=== PATIENT | female | born 1995 | race African-American/Black ===

== ENCOUNTER 2017-06-17 17:11 | Emergency (ER) | payer OTHER ==
[~2017-06-17] VITALS: Ht 175.3 cm; Wt 67.0 kg
[2017-06-17 17:30] VITALS: TEMP 37; Ht 175.3 cm; Wt 67.0 kg
[2017-06-17] MEDS ORDERED: BCPILLS PO (19:25)
[2017-06-17 19:43] LABS: BASO % 0.3 %; BASO ABS # 0.02 K/uL (0-0.2); EOS % 0.9 %; EOS ABS # 0.06 K/uL (0-0.5); HEMOGLOBIN 13.5 g/dL (12.0-16.0); IG# 0.02 K/uL (0.00-0.02); LYMPH % 35.2 %; LYMPH ABS # 2.37 K/uL (1.2-3.4); MEAN CELL VOLUME 82.2 fL (80-100); MEAN CORPUSCULAR HGB CONC 36.5 g/dl (32-36); MEAN PLATELET VOLUME 10.6 fL (7.4-10.4); MONO % 9.9 %; MONO ABS # 0.67 K/uL (0.11-0.59); NEUT % 53.4 %; PLATELET COUNT 287 K/uL (130-400); RED CELL DISTRIBUTION WIDTH CV 14.2 % (11.5-14.5); RED CELL DISTRIBUTION WIDTH SD 42.4 fL (36.4-46.3); WHITE BLOOD COUNT 6.74 K/uL (4.8-10.8)
[2017-06-17 19:52] VITALS: O2SAT 100
[2017-06-17 19:53] VITALS: O2SAT 100
[2017-06-17] MEDS ORDERED: OPTIRAY 320 IV PRN (20:00)
--- NOTE | 2017-06-17 20:01 | DIAGNOSTIC IMAGING REPORT ---
CT ANGIOGRAPHY OF THE CHEST, PULMONARY EMBOLUS PROTOCOL CLINICAL HISTORY: Elevated d-dimer. Respiratory distress. Dyspnea. COMPARISON STUDY: No previous studies for comparison. TECHNIQUE: Following IV administration of 79 mL of Optiray-320, helical axial images of the chest were obtained utilizing the pulmonary embolus protocol. Maximal intensity projections and sagittal and coronal reformats were viewed on an independent 3D workstation. IV contrast was administered without complication. A dose lowering technique was utilized adhering to the principles of ALARA. CT DOSE: 214.55 mGy.cm FINDINGS: No pulmonary emboli are identified although the segmental and subsegmental pulmonary arteries are suboptimally assessed due to respiratory motion. There is no thoracic aortic dissection. The heart is mildly enlarged. There is no pericardial effusion. No enlarged axillary, mediastinal or hilar lymph nodes are present. Central airways are patent. No pneumothorax or pleural effusion is noted. There is no consolidation to suggest pneumonia. There is no pneumomediastinum. The bony thorax is unremarkable. Visualized portions of the upper abdomen are unremarkable. Calcification of the ligamentum arteriosum is noted. IMPRESSION: 1. No pulmonary emboli identified although segmental and subsegmental pulmonary arteries suboptimally assessed due to respiratory motion. 2. Mild cardiomegaly. 3. No consolidation to suggest pneumonia. Electronically signed by: Keith Del Toro M.D. 06/17/2017 8:00 PM Dictated Date/Time: 06/17/2017 7:50 PM
--- NOTE | 2017-06-17 20:23 | EMERGENCY ROOM VISIT NOTE ---
History Report prepared by Linda: Estefani Nobles Under the Supervision of: Dr. Daron Huber M.D. First contact with patient: 18:49 Chief Complaint: ABNORMAL LABS Stated Complaint: ELEVATED D-DIMER, ALSO KNEE AND SHOULDER PAIN History of Present Illness The patient is a 21 year old black female with a past medical history of ganglion cyst removal who presents to the ED with a cc of persistent left knee pain beginning 1 month ago. The patient was sent to the ED after an elevated D- dimer at [facility] today. Positive episode of leg numbness. Negative SOB, chest pain, leg swelling, cough, congestion. Patient started control pill 1 month ago. She notes the knee pain was present before starting control. She recently drove 4 hours to [place]. She denies any history of blood clots. Source of History: patient Onset: 1 month ago Position: knee (left) Quality: other (pain) Timing: other (persistent) Associated Symptoms: + numbness (resolved), No cough, No chest pain, No SOB Note: Pt denies leg swelling, congestion. Review of Systems See HPI for pertinent positives and negatives. A total of ten systems were reviewed and were otherwise negative. Past Medical & Surgical Surgical Problems: (1) Status post surgical removal of ganglion cyst Family History Cancer Hypertension Social History Smoking Status: Never Smoker Housing Status: lives with roommate Occupation Status: [email or web address] student Current/Historical Medications Scheduled Control Pills ( Control Pills), 1 TAB PO DAILY Allergies Coded Allergies: No Known Allergies (Unverified , 06/17/17) Physical Exam Vital Signs Date Time Temp Pulse Resp B/P (MAP) Pulse Ox O2 Delivery O2 Flow Rate FiO2 06/17/17 21:41 60 124/80 06/17/17 19:53 100 Room Air 06/17/17 19:52 66 16 128/78 100 Room Air 06/17/17 17:30 37.0 63 18 127/85 95 Room Air Physical Exam GENERAL: Awake, alert, well-appearing, NAD HENT: Normocephalic, atraumatic. EYES: Normal conjunctiva. Sclera non-icteric. NECK: Supple. No nuchal rigidity. FROM. RESPIRATORY: CTAB, no rhonchi, wheezing, crackles CARDIAC: RRR, no MRG ABDOMEN: Soft, NTND, BS+ MSK: No chest wall TTP. Some patellar tendon pain over the left knee. No appreciable swelling or warmth of the left knee. No pain over the medial or lateral joint lines. No appreciable masses in the knee fossa. No pain with varus and valgus stress. NVI distally LLE. NEURO: GCS 15, CN 2-12 intact, moves all 4s on command SKIN: No rash or jaundice noted. Heart-like tattoo over the right cheek. Medical Decision & Procedures ER Provider Diagnostic Interpretation: Radiology results as stated below per my review and radiologist interpretation: CT ANGIOGRAPHY OF THE CHEST, PULMONARY EMBOLUS PROTOCOL CLINICAL HISTORY: Elevated d-dimer. Respiratory distress. Dyspnea. COMPARISON STUDY: No previous studies for comparison. TECHNIQUE: Following IV administration of 79 mL of Optiray-320, helical axial images of the chest were obtained utilizing the pulmonary embolus protocol. Maximal intensity projections and sagittal and coronal reformats were viewed on an independent 3D workstation. IV contrast was administered without complication. A dose lowering technique was utilized adhering to the principles of ALARA. CT DOSE: 214.55 mGy.cm FINDINGS: No pulmonary emboli are identified although the segmental and subsegmental pulmonary arteries are suboptimally assessed due to respiratory motion. There is no thoracic aortic dissection. The heart is mildly enlarged. There is no pericardial effusion. No enlarged axillary, mediastinal or hilar lymph nodes are present. Central airways are patent. No pneumothorax or pleural effusion is noted. There is no consolidation to suggest pneumonia. There is no pneumomediastinum. The bony thorax is unremarkable. Visualized portions of the upper abdomen are unremarkable. Calcification of the ligamentum arteriosum is noted. IMPRESSION: 1. No pulmonary emboli identified although segmental and subsegmental pulmonary arteries suboptimally assessed due to respiratory motion. 2. Mild cardiomegaly. 3. No consolidation to suggest pneumonia. Electronically signed by: Keith Del Toro M.D. 06/17/2017 8:00 PM Dictated Date/Time: 06/17/2017 7:50 PM LEFT LOWER EXTREMITY VENOUS DOPPLER CLINICAL HISTORY: L posterior knee pain, +dimer, referred COMPARISON STUDY: No previous studies for comparison. TECHNIQUE: Sonography of the deep venous system of the left lower extremity was performed. Compression and augmentation were evaluated. FINDINGS: The left common femoral, superficial femoral and popliteal veins were compressible. Augmentation was normal. Flow was shown within the deep calf vessels. Note is made of a 1.9 x 3 x 0.5 cm elongated hypoechoic focus within left popliteal fossa. IMPRESSION: 1. No evidence of deep venous thrombus within the left lower extremity. 2. 3 x 1.9 x 0.5 cm elongated hypoechoic focus within left popliteal fossa which may reflect a complex popliteal cyst or small hematoma. Electronically signed by: eKith Del Toro M.D. Laboratory Results 06/17/17 19:25 Red Blood Count 4.50, Mean Corpuscular Volume 82.2, Mean Corpuscular Hemoglobin 30.0, Mean Corpuscular Hemoglobin Concent 36.5, Mean Platelet Volume 10.6, Neutrophils (%) (Auto) 53.4, Lymphocytes (%) (Auto) 35.2, Monocytes (%) (Auto) 9.9, Eosinophils (%) (Auto) 0.9, Basophils (%) (Auto) 0.3, Neutrophils # (Auto) 3.60, Lymphocytes # (Auto) 2.37, Monocytes # (Auto) 0.67, Eosinophils # (Auto) 0.06, Basophils # (Auto) 0.02 Test 06/17/17 19:25 White Blood Count 6.74 K/uL (4.8-10.8) Red Blood Count 4.50 M/uL (4.2-5.4) Hemoglobin 13.5 g/dL (12.0-16.0) Hematocrit 37.0 % (37-47) Mean Corpuscular Volume 82.2 fL (80-100) Mean Corpuscular Hemoglobin 30.0 pg (25-34) Mean Corpuscular Hemoglobin Concent 36.5 g/dl (32-36) Platelet Count 287 K/uL (130-400) Mean Platelet Volume 10.6 fL (7.4-10.4) Neutrophils (%) (Auto) 53.4 % Lymphocytes (%) (Auto) 35.2 % Monocytes (%) (Auto) 9.9 % Eosinophils (%) (Auto) 0.9 % Basophils (%) (Auto) 0.3 % Neutrophils # (Auto) 3.60 K/uL (1.4-6.5) Lymphocytes # (Auto) 2.37 K/uL (1.2-3.4) Monocytes # (Auto) 0.67 K/uL (0.11-0.59) Eosinophils # (Auto) 0.06 K/uL (0-0.5) Basophils # (Auto) 0.02 K/uL (0-0.2) RDW Standard Deviation 42.4 fL (36.4-46.3) RDW Coefficient of Variation 14.2 % (11.5-14.5) Immature Granulocyte % (Auto) 0.3 % Immature Granulocyte # (Auto) 0.02 K/uL (0.00-0.02) Laboratory results reviewed by me ECG Indication: other Rate (beats per minute): 64 Rhythm: normal sinus Findings: T-wave inversion (lead 3), other (normal intervals, normal axis, motion artifact present, no other STS changes or TWI) ED Course 1901: The patient was evaluated in room C4. A complete history and physical exam was performed. Medical Decision The patient is a 21 year old black female with a past medical history of ganglion cyst removal who presents to the ED with a cc of persistent knee pain beginning 1 month ago. Differential diagnosis: Etiologies such as DVT, musculoskeletal, infection, joint effusion, trauma, lymphedema, idiopathic, CHF, as well as others were entertained. Patient was seen and evaluated the bedside. Patient was referred given that she had some left-sided knee pain with a positive d-dimer. Patient did have blood work, ultrasound of the left lower extremity, and CT of the chest rule out PE. Patient's blood work was fairly unremarkable. Patient's EKG nonischemic. Patient's ultrasound did not show any evidence of DVT but did show a small focus behind the knee that could've been a cyst versus hematoma. Patient denies any recent trauma and has no evidence of any swelling or warmth of the knee. I do not believe this is a septic arthritis or a hemarthrosis. 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 Patient's CT PE protocol was somewhat limited secondary to respiratory motion how no however no noted PE were identified. Patient was informed of the findings. Patient was told that if she does have discomfort related to her cyst she should follow-up with her primary care physician. Patient does have a follow-up on Thursday. Patient does have a family history of rheumatoid arthritis in both her parents. Patient was told she may benefit from a product development intern follow-up and/or follow up with orthopedist if the cyst becomes a persistent issue. Patient was informed of all findings and was agreeable to this plan of care. Patient was given strict follow-up, discharge, and return precautions. All questions were answered. Patient was deemed suitable for outpatient follow-up at this time. Patient agreed with the plan of care and was safely discharged home. Impression Primary Impression: Bakers cyst Additional Impression: Knee pain Scribe Attestation The scribe's documentation has been prepared under my direction and personally reviewed by me in its entirety. I confirm that the note above accurately reflects all work, treatment, procedures, and medical decision making performed by me. Departure Information Dispostion Home / Self-Care Referrals No Doctor, Assigned (PCP) Patient Instructions ED Cyst Calista, Vandana [facility] Additional Instructions Please return to the emergency department if you have worsening or recurrent symptoms not amenable to at-home treatment. Please call for a follow-up appointment with her primary care physician. Please take your medications as prescribed. If you have other concerns and/or complaints please feel free to also call your primary care physician's office or return the ED for further evaluation, management, and treatment. As we discussed please talk to your physician during her follow-up appointment as to whether or not you may benefit from referral to rheumatology and/or orthopedics. You may take 600 mg Ibuprofen every 6 hours as needed for pain with food for no more than 2 consecutive days. You may take tylenol 1000 mg every 6 hours as needed for pain. You may take motrin and tylenol separately or at the same time. You have been examined and treated today on an emergency basis only. This is not a substitute for, or an effort to provide, complete comprehensive medical care. It is impossible to recognize and treat all injuries or illnesses in a single emergency department visit. It is therefore important that you follow up closely with [facility], your PCP, and/or your specialist(s). Call as soon as possible for an appointment. Thank you for your time and consideration. I look forward to speaking with you again soon. Please don't hesitate to call us if you have any questions. Problem Qualifiers Primary Impression: Bakers cyst Laterality: left Qualified Codes: M71.22 - Synovial cyst of popliteal space [Grigsby], left knee Additional Impression: Knee pain Chronicity: chronic Laterality: left Qualified Codes: M25.562 - Pain in left knee; G89.29 - Other chronic pain
--- NOTE | 2017-06-17 21:03 | DIAGNOSTIC IMAGING REPORT ---
LEFT LOWER EXTREMITY VENOUS DOPPLER CLINICAL HISTORY: L posterior knee pain, +dimer, referred COMPARISON STUDY: No previous studies for comparison. TECHNIQUE: Sonography of the deep venous system of the left lower extremity was performed. Compression and augmentation were evaluated. FINDINGS: The left common femoral, superficial femoral and popliteal veins were compressible. Augmentation was normal. Flow was shown within the deep calf vessels. Note is made of a 1.9 x 3 x 0.5 cm elongated hypoechoic focus within left popliteal fossa. IMPRESSION: 1. No evidence of deep venous thrombus within the left lower extremity. 2. 3 x 1.9 x 0.5 cm elongated hypoechoic focus within left popliteal fossa which may reflect a complex popliteal cyst or small hematoma. Electronically signed by: Keith Del Toro M.D. 06/17/2017 9:01 PM Dictated Date/Time: 06/17/2017 9:00 PM
[2017-06-17 21:41] VITALS: BP 124/80; PULSE 60
[2017-06-18 13:08] LABS: ISTAT CREATININE 0.8 mg/dl; ISTAT IONIZED CALCIUM 1.2 mmol/l; ISTAT POTASSIUM 3.4 mEq/L (3.3-5.0)
== END 2017-06-17 21:40 | disposition home or self-care (01) ==
LOC: C.EDB 17:14 → C.EDC 21:40
DX: M71.22 Synovial cyst of popliteal space [Baker], left knee (principal); M25.562 Pain in left knee; Z98.890 Other specified postprocedural states; Z80.9 Family history of malignant neoplasm, unspecified; Z82.49 Family history of ischemic heart disease and other diseases of the circulatory system

== ENCOUNTER → 2017-07-01 | Outpatient (CLI) | payer OTHER ==
[~2017-07-01] MED LIST: BCPILLS PO
== END | disposition home or self-care (01) ==
LOC: C.RDSM 20:17
PROVIDERS: ATTEND Orthopaedic Surgery
DX: M25.562 Pain in left knee (principal)

== ENCOUNTER → 2017-09-14 | Outpatient (CLI) | payer OTHER ==
--- NOTE | 2017-09-14 16:21 | ECHOCARDIOGRAM REPORT ---
*NOTICE TO RECEIVING DEMOCRAT AGENCY This information is strictly Confidential and protected under [place] law. [place] law prohibits you from making any further disclosure of this information unless further disclosure is expressly permitted by the written consent of the person to whom it pertains or is authorized by law. A general authorization for the release of medical or other information is not sufficient for this purpose. Hospital accepts no responsibility if the information is made available to any other person, INCLUDING THE PATIENT. Interpretation Summary * Name: CRISTHIAN LI Study Date: 09/14/2017 02:14 PM BP: 129/70 mmHg * Patient Location: [facility] HR: 68 * : 1995 (M/d/yyyy) Gender: Female Height: 828 in * Age: 22 yrs Ethnicity: AA Weight: 147 lb * Ordering Physician: Denise Peña * Referring Physician: Denise Peña * Performed By: Millie Nelson RDCS * * Reason For Study: CARDIOMEGALY * BSA: 11.0 m2 * -- Conclusions -- * 1. Normal LV size. Mild concentric LVH * 2. Normal LV systolic function. LVEF 65-70 %. No regional wall motion abnormalities. * 3. Normal RV size and function. * 4. No significant valvular pathology. * 5. Normal estimated PA and RA pressures. * 6. Ascending aorta not well visualized, appears borderline dilated * 7. No prior studies for comparison. Procedure Details * A complete two-dimensional transthoracic echocardiogram was performed (2D, M-mode, Doppler and color flow Doppler). Left Ventricle * The left ventricle is grossly normal size. * There is mild concentric left ventricular hypertrophy. * Ejection Fraction = 65-70%. * No regional wall motion abnormalities noted. Right Ventricle * The right ventricle is grossly normal size. * The right ventricular systolic function is normal as assessed by tricuspid annular plane systolic excursion (TAPSE) (normal >1.5 cm). Atria * The left atrial size is normal. * Right atrial size is normal. * No ASD detected; PFO is not assessed. Mitral Valve * The mitral valve is grossly normal. * There is no mitral valve stenosis. * Significant mitral regurgitation is absent. Tricuspid Valve * The tricuspid valve is not well visualized, but is grossly normal. * There is trace tricuspid regurgitation. Aortic Valve * The aortic valve opens well. * The aortic valve is trileaflet. * No hemodynamically significant valvular aortic stenosis. * There is no significant aortic regurgitation. Pulmonic Valve * The pulmonic valve is not well seen, but is grossly normal. * There is no pulmonic valvular stenosis. * Trace pulmonic valvular regurgitation. Great Vessels * Borderline dilated ascending aorta. Pericardium/Pleural * There is no pericardial effusion. Great Vessels * Normal inferior vena cava size and collapsability with sniff indicates a normal right atrial pressure of 3 mmHg MMode 2D Measurements and Calculations IVSd 1.2 cm IVSs 1.3 cm LVIDd 4.5 cm LVIDs 2.8 cm LVPWd 1.2 cm LVPWs 1.6 cm IVS/LVPW 0.96 FS 38.4 % EDV(Teich) 90.9 ml ESV(Teich) 28.3 ml EF(Teich) 68.9 % EDV(cubed) 89.1 ml ESV(cubed) 20.8 ml EF(cubed) 76.6 % % IVS thick 13.6 % % LVPW thick 28.6 % LV mass(C)d 198.2 grams LV mass(C)dI 18.0 grams/m\S\2 LV mass(C)s 136.1 grams LV mass(C)sI 12.4 grams/m\S\2 SV(Teich) 62.6 ml SI(Teich) 5.7 ml/m\S\2 SV(cubed) 68.3 ml SI(cubed) 6.2 ml/m\S\2 ACS 1.7 cm LA dimension 2.5 cm asc Aorta Diam 2.5 cm LVOT diam 2.0 cm LVOT area 3.0 cm\S\2 LVAd ap4 25.1 cm\S\2 LVLd ap4 6.9 cm EDV(MOD-sp4) 74.9 ml LVAs ap4 11.3 cm\S\2 LVLs ap4 5.4 cm ESV(MOD-sp4) 20.1 ml EF(MOD-sp4) 73.2 % LVAd ap2 23.9 cm\S\2 LVLd ap2 7.4 cm EDV(MOD-sp2) 64.5 ml LVAs ap2 10.4 cm\S\2 LVLs ap2 5.5 cm ESV(MOD-sp2) 17.1 ml EF(MOD-sp2) 73.5 % SV(MOD-sp4) 54.8 ml SI(MOD-sp4) 5.0 ml/m\S\2 SV(MOD-sp2) 47.4 ml SI(MOD-sp2) 4.3 ml/m\S\2 Doppler Measurements and Calculations MV E max jessica 72.3 cm/sec MV A max jessica 48.0 cm/sec MV E/A 1.5 MV dec time 0.20 sec Ao V2 max 145.2 cm/sec Ao max PG 8.4 mmHg Ao max PG (full) 3.7 mmHg TERESA(V,A) 2.3 cm\S\2 TERESA(V,D) 2.3 cm\S\2 LV V1 max PG 4.7 mmHg LV V1 max 108.7 cm/sec PA V2 max 83.9 cm/sec PA max PG 2.8 mmHg PI end-d jessica 97.7 cm/sec TR max jessica 206.3 cm/sec
== END | disposition home or self-care (01) ==
LOC: C.CPL 13:52
PROVIDERS: ATTEND Internal Medicine
DX: I51.7 Cardiomegaly (principal)